=== PATIENT | female | born 1955 | race Caucasian/White ===

== ENCOUNTER 2022-01-17 15:06 | Emergency (ER) | payer OTHER ==
[~2022-01-17] VITALS: Ht 157.5 cm; Wt 53.5 kg
[~2022-01-17 15:06] MED LIST: EVISTA60 MG PO; METFORMIN HCL750 MG PO; VICTOZA 3-0.6 MG/0.1 SC
[2022-01-17 16:16] LABS: BASOPHIL 0.4 % (0-2); EOSINOPHIL 0.2 % (0-7); HCT 40.9 % (37.0-47.0); HGB 13.5 g/dl (12.5-16.0); LYMPHOCYTE 10.7 % (15-48); MCV 90.9 fL (78.0-100.0); MONOCYTE 5.8 % (0-12); MPV 9.3 fL (6.0-9.5); NEUTROPHIL 82.6 % (41-80); NRBC 0; PLT 262 K/uL (150-400); RDW 12.1 % (11.5-14.0); WBC 9.7 K/uL (4.0-10.5)
[2022-01-17 16:46] LABS: ALBUMIN 3.6 g/dL (3.4-5.0); BILIRUBIN - TOTAL 0.4 mg/dL (0.2-1.0); BUN/CREAT RATIO (CALC) 13.5 RATIO; CREATININE 0.89 mg/dL (0.51-0.95); GLOBULIN (CALCULATION) 3.1 g/dL; POTASSIUM 4.5 mmol/L (3.5-5.1); TOTAL PROTEIN 6.7 g/dL (6.4-8.2)
[2022-01-17 17:03] LABS: CORONAVIRUS 2019 SARS-COV-2 NEGATIVE (NEGATIVE); INFLUENZA A NAA NEGATIVE (NEGATIVE)
== END 2022-01-17 19:37 | disposition home or self-care (01) ==
LOC: FER 15:06
PROVIDERS: Nurse Practitioner Family
DX: R00.0 Tachycardia, unspecified (principal); T50.Z95A Adverse effect of other vaccines and biological substances, initial encounter; E11.9 Type 2 diabetes mellitus without complications; Z79.84 Long term (current) use of oral hypoglycemic drugs; Z20.822 Contact with and (suspected) exposure to COVID-19
CPT/HCPCS: 36415; 71045; 80053; 84484; 85025; 85379; J7030; U0002